=== PATIENT | female | born 1980 | race Caucasian/White ===

== ENCOUNTER 2017-01-15 01:09 | Observation (INO) | payer OTHER ==
--- NOTE | 2017-01-15 02:28 | ED PDOC ---
HPI: Psych/Substance Abuse Time Seen by Provider: 01/15/17 01:28 Chief Complaint (Nursing): Alcohol Ingestion Chief Complaint (Provider): ETOH History Per: Patient History/Exam Limitations: no limitations Onset/Duration Of Symptoms: Unknown Current Symptoms Are (Timing): Still Present Modifying Factor(s): Alcohol Associated Symptoms: Other (HI - no plan. ). denies: Anger, Anxiety, Agitation , Depression, Paranoia, Suicidal Thoughts, Suicidal Plan Additional History Per: Patient Additional Complaint(s): 36 y/o female who is here this evening after being found intoxicated and admits to drinking alcohol this evening. She reports that she has some homicidal ideation after an argument with her boyfriend, but denies any plan. Patient denies any medical complaints. Past Medical History Vital Signs: Last Vital Signs Temp 98.1 F 01/15/17 01:21 Pulse 80 01/15/17 01:21 Resp 16 01/15/17 01:21 BP 119/76 01/15/17 01:21 Pulse Ox 100 01/15/17 01:21 - Surgical History Surgical History: No Surg Hx - Family History Family History: States: Unknown Family Hx - Social History Current smoker - smoking cessation education provided: No Alcohol: Social Drugs: Denies - Home Medications Home Medications: Ambulatory Orders Medication Instructions Recorded Ibuprofen 600 mg PO Q6H PRN #15 tab 06/20/15 - Allergies Allergies/Adverse Reactions: Allergies Allergy/AdvReac Type Severity Reaction Status Date / Time No Known Allergies Allergy Unverified 06/20/15 00:08 Review of Systems ROS Statement: Except As Marked, All Systems Reviewed And Found Negative Physical Exam - Physical Exam Appears: Positive for: Non-toxic, No Acute Distress Skin: Positive for: Warm, Dry Eye Exam: Positive for: EOMI ENT: Positive for: Normal ENT Inspection Neck: Positive for: Painless ROM Cardiovascular/Chest: Positive for: Regular Rate, Rhythm Respiratory: Positive for: Normal Breath Sounds Gastrointestinal/Abdominal: Positive for: Soft. Negative for: Tenderness Neurologic/Psych: Positive for: Alert, Oriented - ECG O2 Sat by Pulse Oximetry: 100 (RA) Pulse Ox Interpretation: Normal Medical Decision Making Medical Decision Making: Initial Impression: ETOH Intoxication Initial Plan: - Serum Alcohol Level - Crisis Evaluation 2:37 AM: Patient placed in ED Obs pending sobriety and crisis evaluation. Scribe Attestation: Documented by Myriam Hamilton, acting as a scribe for Ted Castle MD. Scribe Attestation: All medical record entries made by the Scribe were at my direction and personally dictated by me. I have reviewed the chart and agree that the record accurately reflects my personal performance of the history, physical exam, medical decision making, and the department course for this patient. I have also personally directed, reviewed, and agree with the discharge instructions and disposition. Disposition - Clinical Impression Clinical Impression: Alcohol abuse - Patient ED Disposition Is Patient to be Admitted: Transfer of Care - Disposition Disposition: Transfer of Care Disposition Time: 07:00 Condition: STABLE Patient Signed Over To: Kelvin Pratt III Handoff Comments: pending sobriety and crisis eval - Pt Status Changed To: Hospital Disposition Of: Observation
--- NOTE | 2017-01-15 07:07 | ED PDOC ---
- ECG O2 Sat by Pulse Oximetry: 100 (RA) Pulse Ox Interpretation: Normal Medical Decision Making Medical Decision Makin signed over to me by Marisel Castle MD pending clinical sobriety and crisis evaluation. 0900 resting comfortably 1051 patient was seen and cleared by crisis. she is awake, alert, and cooperative. no homicidal ideations. Disposition Counseled Patient/Family Regarding: Studies Performed, Diagnosis - Clinical Impression Clinical Impression: Alcohol abuse - POA Present On Arrival: None - Disposition Disposition: Routine/Home Disposition Time: 09:30 Condition: STABLE ED OBSERVATION Date of observation admission: 01/15/17 Time of observation admission: 02:37 Additional Comments - Additional Comments Additional Comments: Scribe Attestation: Documented by Corwin Lester, acting as a scribe for Kelvin Pratt DO. Provider Scribe Attestation: All medical record entries made by the Scribe were at my direction and personally dictated by me. I have reviewed the chart and agree that the record accurately reflects my personal performance of the history, physical exam, medical decision making, and the department course for this patient. I have also personally directed, reviewed, and agree with the discharge instructions and disposition.
[2017-01-15 11:06] VITALS: BP 109/68; PULSE 95; RESP 16; TEMP 97
[2017-01-19 16:52] VITALS: O2SAT 100
== END 2017-01-15 10:49 | disposition home or self-care (01) ==
LOC: H.ER 01:09 → H.EROBSV 02:37
PROVIDERS: ADMIT Emergency Medicine; ATTEND Emergency Medicine
DX: F10.129 Alcohol abuse with intoxication, unspecified (principal); Y90.8 Blood alcohol level of 240 mg/100 ml or more